=== PATIENT | female | born 1940 | race Caucasian/White ===

== ENCOUNTER → 2016-10-24 | Day surgery (SDC) | payer MEDICARE, OTHER ==
[~2016-10-24] MED LIST: 24 HOUR ALLER15.8 ML; ALEVE220 M1 PO; ALLERGY25 M1 PO; AMITRYPTYLINE PO; AMLODIPINE BESY10 MG PO; AMLODIPINE BESYL5 MG PO; ASTEPRO205.5 MCG/; BACLOFEN10 MG PO; BACTROBAN22 GM TP; CALCIUM 600 + D1 TAB PO; COZAAR100 MG PO; DESONIDE TOP; DICLOFENAC PO; DITROPAN PO; FISH OIL 1,0001 CAP PO; FISH OIL 1,2001 EAC2 PO; FLEXERIL10 MG PO; GABAPENTIN600 MG PO; HYDROCODON-ACE1 EAC7 PO; IBUPROFEN800 MG PO; MULTIPLE VITAM1 EAC1 PO; MUPIROCIN0.9 GM TOP; NEURONTIN300 MG PO; OMEPRAZOLE40 M1 PO; ONE DAILY MULTI1 TA3 PO; PRILOSEC20 M1 PO; SIMVASTATIN10 MG PO; ST JOSEPH ASPIR81 M1 PO; TEMOVATE 0.05%15 GM EXT; TOPAMAX50 MG PO; TRAMADOL HCL50 M2 PO; TRIDESILON 0.0515 G2 TOP; TRIPLE FLEX CA1 EACH PO; TRIPLE FLEX PO; VITAMIN C1000 M2 PO; VITAMIN C500 M1 PO; VITAMIN C500 M5 PO; VITAMIN E400 UNI4 PO; VOLTAREN75 MG PO; ZOCOR20 MG PO; ZOSTRIX CREAM56.6 GM TP; [UNRECOGNIZED DRUG - OTHER] TOP
--- NOTE | ~2016-10-24 | OR ---
Unit #: [id number] #: [id number] Patient: TARAN CRAWLEY [id number] [address] [place], [place] [address] [id number] MR#: [id number] NAME: TARAN CRAWLEY ROOM: Date of Procedure: 10/24/2016 Admission Date: 10/24/2016 Surgeon: Henry Short M.D. : 1940 Attending Physician: Henry Short M.D. Primary Care Physician: Priya Ruiz M.D. OPERATIVE REPORT PREOPERATIVE DIAGNOSES Back pain, lumbar facet disease. POSTOPERATIVE DIAGNOSES Back pain, lumbar facet disease. PROCEDURES PERFORMED Lumbar facet injection x2 levels with intravenous sedation and fluoroscopic guidance for needle localization. INDICATIONS FOR PROCEDURE The patient is a 75-year-old female with return of back pain due to nonsurgical degenerative facet disease. She was last treated with L4-5 and L5-S1 facet injections at the end of 02/2016. She did very well for 6 months. Pain has gotten bad over the last month or so. So, the plan is to repeat those injections based on history, pathology, symptomatology, and response to treatment. DESCRIPTION OF PROCEDURE The patient was placed in a prone position. Standard monitors were applied. 2 mg of Versed were given for sedation and anxiolysis, which were adequate. Vital signs remained stable. Sterile prep and drape then of the lumbar area was performed. The skin then overlying the left-sided L4-5 and L5-S1 facet joints were localized with 1% lidocaine. A long 22-gauge Quincke point spinal needle was advanced at these two levels, then with fluoroscopic guidance, brought the needle tip to within the edge of the respective L4-5 and L5-S1 facet joints. After confirming this, a mixture of 80 mg of Depo-Medrol and 3 mL of 0.25% bupivacaine were deposited. 1 mL of this was injected at each joint, 0.5 mL within the joint and 0.5 mL just outside the joint. The needles were flushed and removed. The exact same procedure was then repeated on the right at the L4-5 and L5-S1 facet joints and the same dosing of medication was used after fluoroscopy was used to confirm proper needle tip positioning within the respective facet joints. The needles were flushed and removed. The patient tolerated the procedure well and was discharged to the recovery room in stable condition. Dictated by... Henry Short M.D. Unit #: [id number] #: [id number] Patient: TARAN CRAWLEY LHP/modl TD: 10/25/2016 03:27 JOB #: [id number] OPERATIVE REPORT Page 1 of 1 X Henry Short MD X PROCEDURE OPERATIVE NOTE
== END | disposition home or self-care (01) ==
LOC: CCSC 10:55
DX: M47.26 Other spondylosis with radiculopathy, lumbar region (principal); M53.86 Other specified dorsopathies, lumbar region; E66.01 Morbid (severe) obesity due to excess calories; I10 Essential (primary) hypertension; K21.9 Gastro-esophageal reflux disease without esophagitis; Z91.040 Latex allergy status; Z79.1 Long term (current) use of non-steroidal anti-inflammatories (NSAID); Z79.891 Long term (current) use of opiate analgesic; Z79.899 Other long term (current) drug therapy; Z79.82 Long term (current) use of aspirin
CPT/HCPCS: J1040; J2250